=== PATIENT | male | born 1965 | race Caucasian/White ===

== ENCOUNTER 2021-12-10 16:56 | Emergency (ER) | payer SELFPAY ==
[2021-12-10 17:02] VITALS: BP 169/70; PULSE 89; RESP 16; TEMP 37.4; O2SAT 98; BMI 28.2
[2021-12-10 17:25] LABS: Appearance Urine Slightly Cloudy (Clear); Bilirubin Urine Negative (Negative); Blood Urine Trace-lysed (Negative); Color Urine Yellow (Yellow); Glucose Urine 3+ (Negative); Ketones Urine Negative (Negative); Leukocyte Esterase Urine Negative (Negative); Nitrite Urine Positive (Negative); Protein Urine Negative (Negative); Specific Gravity Urine 1.025 (1.000-1.030); Urobilinogen Urine 0.2 (0.2-1.0); pH Urine 5.5 (5.0-8.5)
--- NOTE | 2021-12-10 17:28 | ED_ITS ---
HPI - General Adult General Time Seen by Provider: 17:28 Date Seen: 12/10/21 Chief complaint: Unspecified Complaint, Adult Stated complaint: NO UPPER SORBIAN-POINTED TO HIS PENIS THE PROBLEM Time Seen by Provider: 12/10/21 16:58 Source: patient Mode of arrival: ambulatory Limitations: language barrier History of Present Illness HPI narrative: Cali is a 56-year-old female past medical history includes diabetes mellitus type 2 presents emergency department with a urinary problem. Patient does have a history of urinary tract infections in the past usually involving E.coli, patient has also had balanitis due to his uncircumcised penis and history of diabetes. Patient states over the last week he has had increased burning on finishing urination, denies any blood in the urine, denies any increased urinary frequency. Patient has not had any back pain, abdominal pain, fevers, chills. He has not had any nausea or vomiting. There has been some irritation and re dness to his glans penis and to his prepuce, he has also had increased white discharge. Patient denies any sexual activity, he denies any penile discharge, penile lesions or scrotal lesions. Patient has appointment with his primary care provider at the end of December. No other concerns at this time. Related Data Home Medications Medication Instructions Recorded Confirmed aspirin 81 mg tablet,delayed mg 12/10/21 release insulin syringe-needle U-100 0.3 12/10/21 12/10/21 mL 31 gauge x 15/64 (BD Veo Insulin Syringe Ultra-Fine) lisinopril 10 mg tablet mg 12/10/21 lovastatin 40 mg tablet mg 12/10/21 metformin 1,000 mg tablet mg 12/10/21 Previous Rx's Medication Instructions Recorded cefdinir 300 mg capsule 300 mg PO BID 7 Days #14 cap 12/10/21 hydrocortisone 2.5 % topical cream 1 applic TOPICAL BID PRN 7 Days 12/10/21 #28 g nystatin 100,000 unit/gram topical 1 applic TOPICAL BID 7 Days #30 g 12/10/21 cream Allergies Allergy/AdvReac Type Severity Reaction Status Date / Time No Known Drug Allergies Allergy Verified 12/10/21 17:10 Review of Systems Status of ROS: Reports: 10 or more systems reviewed and unremarkable except as noted in History and below PFSH PFSH Social History Smoking Status: Unknown if ever smoked Do you use any of these nicotine containing products: None How often do you have a drink containing alcohol: monthly or less AUDIT-C Alcohol total score: 1 Exam Narrative: Exam Narrative: General: No obvious distress sitting comfortably. HEENT: Pupils equal round and reactive to light, EOMI Neck: supple, FROM Lungs: CTAB Heart: Normal sinus rhythm, S1-S2 Abdomen: Soft nontender, bowel sounds present Genitourinary: Nontender to the testes bilaterally, scrotum within normal limits, no lesions noted, uncircumcised penis, with full retraction of foreskin, there is some white discharge, there is an area of inflammation redness the right side of the glans, non raised, no ulceration, there is involvement on the foreskin. No issues retracting the foreskin. Muscle skeletal: No CVA tenderness Neuro: Alert awake and oriented x3 Const: Vital Signs, click to edit/add: Vital Signs - 24 hr 12/10/21 17:02 Temperature 99.4 F Pulse Rate [Right Pulse Oximeter] 89 Respiratory Rate 16 Blood Pressure [Ri ght Upper Arm] 169/70 H Pulse Oximetry 98 Course Course Hospital Course: 5:00 PM: AIDET performed. vitals are normal. Work up will include urinalysis and urine culture, based on exam seems related to balanitis, possible [place]ita the son is diabetes history, plan to cover with nystatin cream and 2.5% hydrocortisone cream to be applied twice daily over the next 7-10 days. He sh ould follow up with his primary care provider as scheduled, return precautions given. Reevaluation(s) Reevaluation #1: Patient was updated on his urinalysis results, urine was positive for nitrates, he did have 5-10 white blood cell and many bacteria, previous culture showed E coli pansensitive, in addition to treating his balanitis will add oral cefdinir 300 mg b.i.d. over 7 days for his UTI. All questions answered, prescription sent to his local pharmacy he has follow-up arranged next month. Time: 17:55 Vital Signs Vital signs: Initial Vital Signs Temperature 99.4 F 12/10/21 17:02 Temperature Source Temporal Artery Scan 12/10/21 17:02 Pulse Rate 89 12/10/21 17:02 Respiratory Rate 16 12/10/21 17:02 Blood Pressure 169/70 H 12/10/21 17:02 Blood Pressure Mean 103 12/10/21 17:02 Blood Pressure Position Sitting 12/10/21 17:02 Pulse Oximetry 98 12/10/21 17:02 Oxygen Delivery Method 12/10/21 17:02 Vital Signs Temperature 99.4 F 12/10/21 17:02 Pulse Rate 89 12/10/21 17:02 Respiratory Rate 16 12/10/21 17:02 Blood Pressure 169/70 H 12/10/21 17:02 Pulse Oximetry 98 12/10/21 17:02 Temperature 99.4 F 12/10/21 17:02 Pulse Rate 89 12/10/21 17:02 Respiratory Rate 16 12/10/21 17:02 Blood Pressure 169/70 H 12/10/21 17:02 Pulse Oximetry 98 12/10/21 17:02 Medical Decision Making Lab Data Labs: Lab Results 12/10/21 Range/Units 17:15 Urine Color Yellow (Yellow) Urine Appearance Slightly Cloudy A (Clear) Urine pH 5.5 (5.0-8.5) Ur Specific [place] 1.025 (1.000-1.030) Urine Protein Negative (Negative) Urine Glucose (UA) 3+ A (Negative) Urine Ketones Negative (Negative) Urine Blood Trace-lysed A (Negative) Urine Nitrite Positive A (Negative) Urine Bilirubin Negative (Negative) Urine Urobilinogen 0.2 (0.2-1.0) Ur Leukocyte Esterase Negative (Negative) Urine RBC 0-2 (0-2) Urine WBC 5-10 A (0-5) Ur Squamous Epith Cells Few (None-Few) Urine Bacteria Many A (None) Discharge Plan Discharge Clinical Impression: Balanitis, History of frequent urinary tract infections Patient Disposition: Home, Self-Care Condition: Improved Instructions: Balanitis (ED) Prescriptions: New hydrocortisone 2.5 % cream 1 applic topical BID PRN7 Days Qty: 28 0RF cefdinir 300 mg capsule 300 mg PO BID 7 Days Qty: 14 0RF nystatin 100,000 unit/gram cream 1 applic topical BID 7 Days Qty: 30 0RF No Action lovastatin 40 mg tablet 0RF Label Comments: TAKE 1 TABLET BY MOUTH EVERY DAY WITH THE EVENING MEAL aspirin 81 mg tablet,delayed release (DR/EC) 0RF Label Comments: TAKE ONE TABLET BY MOUTH EVERY DAY metformin 1,000 mg tablet 0RF Label Comments: TAKE ONE TABLET BY MOUTH TWICE DAILY WITH MORNING AND EVENING MEALS lisinopril 10 mg tablet 0RF Label Comments: TAKE ONE TABLET BY MOUTH EVERY DAY (DME) insulin syringe-needle U-100 [BD Veo Insulin Syringe UF] 0.3 mL 31 gauge x 15/64 syringe MISCELLANEOUS 0RF Label Comments: USE DIRECTED WITH INSULIN Stand Alone Forms: My[facility] Info Instructions
[2021-12-10 17:46] LABS: Bacteria Urine Many; RBC Urine 0-2 (0-2); Squamous Epithelial Cell Urine Few (None-Few)
== END 2021-12-10 18:27 | disposition home or self-care (01) ==
PROVIDERS: Emergency Provider Student in an Organized Health Care Education/Training Program
DX: N48.1 Balanitis (principal)
CPT/HCPCS: 81001; 87086; 87186; 87502; 87635; 99283; 99284

== ENCOUNTER 2023-09-11 17:47 | Emergency (ER) | payer OTHER, SELFPAY ==
[2023-09-11 18:03] VITALS: BP 178/68; PULSE 75; RESP 18; TEMP 37.1; O2SAT 100; BMI 28.3
--- NOTE | 2023-09-11 18:58 | ED_ITS ---
HPI - General Adult General Chief complaint: Urogenital Problems, Male Stated complaint: pain/burning when urinating and red penis Time Seen by Provider: 09/11/23 17:58 Source: patient Mode of arrival: ambulatory Limitations: no limitations History of Present Illness HPI narrative: 57-year-old male coming in today complaining of burning and pain at the tip of the penis. States has been present for about 3 weeks. States that he has seen his doctor and he got 2 creams: It appears that he got hydrocortisone and clotrimazole. He states he has had 1 sexual partner for the last 20 years. He denies purulent discharge from the tip of the penis. He denies any systemic symptoms. Patient does have diabetes. Related Data Home Medications Medication Instructions Recorded Confirmed aspirin 81 mg tablet,delayed mg 12/10/21 release insulin syringe-needle U-100 0.3 12/10/21 09/11/23 mL 31 gauge x 15/64 (BD Veo Insulin Syringe Ultra-Fine) lisinopril 10 mg tablet 10 mg 12/10/21 lovastatin 40 mg tablet 40 mg 12/10/21 metformin 1,000 mg tablet 500 mg 12/10/21 Previous Rx's Medication Instructions Recorded cefdinir 300 mg capsule 300 mg PO BID 7 days #14 caps 12/10/21 hydrocortisone 2.5 % topical cream 1 applic topical BID PRN 7 days 12/10/21 #28 grams nystatin 100,000 unit/gram topical 1 applic topical BID 7 days #30 12/10/21 cream grams miconazole nitrate 2 % topical 1 applic topical BID 14 days #15 09/11/23 cream grams Allergies Allergy/AdvReac Type Severity Reaction Status Date / Time No Known Drug Allergies Allergy Verified 12/10/21 17:10 Review of Systems Status of ROS: Reports: 10 or more systems reviewed and unremarkable except as noted in History and below [facility] Social History Smoking Status: Unknown if ever smoked Do you use any of these nicotine containing products: None How often do you have a drink containing alcohol: monthly or less AUDIT-C Alcohol total score: 1 Exam Narrative: Exam Narrative: Well-nourished well-developed patient in no acute distress. Alert and oriented. Answers questions appropriately. Mood and affect are appropriate. Thoughts are goal oriented and rational. No tangential or magical thinking noted. Patient speaks in full sentences without needing to catch his breath. He does have poor dentition and strong malodorous breath. HEENT: Normocephalic atraumatic. Pupils are equally round reactive to light. Extraocular muscles are intact. Conjunctivae are moist without any icterus noted. Moist mucous membranes. : Penis has normal appearance of the shaft. He is on circum sized. The foreskin on the outside, appears healthy. The skin is easily retracted without any evidence of phimosis. The glans of the penis has erythematous glazed patches with some white discharge present. He also has erythematous patches on the inner surface of the foreskin. There is no spreading rash over the shaft of the penis or scrotum. No rash of the thighs. No significant lymphadenopathy noted. The entire area smells very strongly of urine. Const: Vital Signs, click to edit/add: Vital Signs - 24 hr 09/11/23 18:03 Temperature 98.8 F Pulse Rate [Right Pulse Oximeter] 75 Respiratory Rate 18 Blood Pressure [Ri ght Upper Arm] 178/68 H Pulse Oximetry 100 Oxygen Delivery Me thod Room Air Course Vital Signs Vital signs: Initial Vital Signs Temperature 98.8 F 09/11/23 18:03 Temperature Source Temporal Artery Scan 09/11/23 18:03 Pulse Rate 75 09/11/23 18:03 Respiratory Rate 18 09/11/23 18:03 Blood Pressure 178/68 H 09/11/23 18:03 Blood Pressure Mean 104 09/11/23 18:03 Blood Pressure Position Sitting 09/11/23 18:03 Pulse Oximetry 100 09/11/23 18:03 Oxygen Delivery Method Room Air 09/11/23 18:03 Vital Signs Temperature 98.8 F 09/11/23 18:03 Pulse Rate 75 09/11/23 18:03 Respiratory Rate 18 09/11/23 18:03 Blood Pressure 178/68 H 09/11/23 18:03 Pulse Oximetry 100 09/11/23 18:03 Oxygen Delivery Method Room Air 09/11/23 18:03 Temperature 98.8 F 09/11/23 18:03 Pulse Rate 75 09/11/23 18:03 Respiratory Rate 18 09/11/23 18:03 Blood Pressure 178/68 H 09/11/23 18:03 Pulse Oximetry 100 09/11/23 18:03 Oxygen Delivery Method Room Air 09/11/23 18:03 Medical Decision Making MDM Narrative Medical decision making narrative: 57-year-old male with balanitis. I think that hygiene is playing a big part in his symptoms. Therefore we discussed hygiene. Were going to change his clotrimazole cream to make own as all cream 2% to see if this makes a difference. Continue 1% hydrocortisone. Discharge Plan Discharge Clinical Impression: Balanitis Patient Disposition: Home, Self-Care Condition: Stable Additional Instructions: Recommend twice daily saline solution bathing for 14 days. Pull back the foreskin, use saline to with the area. Use a gentle soap to very gently cleanse the entire penis. Then rinse with saline. Do this 2 times per day. Pat dry-do not rub dry. Make sure that you are changing your underwear twice daily as well. Use the hydrocortisone cream that you have been prescribed twice a day. Apply this cream after cleansing the area. Then apply a new antifungal cream which has been sent to the pharmacy for you. Apply this twice a day as well. If after 2 weeks of twice daily cleaning and drying with twice daily application of both creams the condition does not improve, need to follow-up with your primary care provider for next steps. Lastly, make sure that your blood sugar level is well controlled. Prescriptions: New miconazole nitrate 2 % cream 1 applic topical BID 14 Days Qty: 15 0RF No Action lovastatin 40 mg tablet 40 mg Patient Comments: TAKE 1 TABLET BY MOUTH EVERY DAY WITH THE EVENING MEAL aspirin 81 mg tablet,delayed release (DR/EC) Patient Comments: TAKE ONE TABLET BY MOUTH EVERY DAY metformin 1,000 mg tablet 500 mg Patient Comments: TAKE ONE TABLET BY MOUTH TWICE DAILY WITH MORNING AND EVENING MEALS lisinopril 10 mg tablet 10 mg Patient Comments: TAKE ONE TABLET BY MOUTH EVERY DAY (DME) insulin syringe-needle U-100 [BD Veo Insulin Syringe UF] 0.3 mL 31 gauge x 15/64 syringe MISCELLANEOUS Patient Comments: USE DIRECTED WITH INSULIN hydrocortisone 2.5 % cream 1 applic topical BID PRN7 Days Qty: 28 0RF cefdinir 300 mg capsule 300 mg PO BID 7 Days Qty: 14 0RF nystatin 100,000 unit/gram cream 1 applic topical BID 7 Days Qty: 30 0RF Stand Alone Forms: MyHealth Info Instructions
--- OUTSIDE RECORDS SUMMARY | 2023-09-11 19:33 | XMS_ITS | Clinical Summary ---
Author Name Unknown Organization [facility] Address [place], [place] [address] Care Team Providers Care Chief Nursing Officer Name Role Phone Pcp, No Primary Care Provider Unavailabl e Allergies No known active allergies Medications Medication Sig Dispensed Refills Start Date End Date Status metFORMIN (GLUCOPHAGE) 1,000 mg tablet Take 1 tablet by mouth 2 times daily with meals. 0 01/08/2015 Active lovastatin (MEVACOR) 20 mg tablet Take 1 tablet by mouth at bedtime. 0 12/04/2015 Active Active Problems No known active problems Social History Tobacco Use Types Packs/Day Years Used Date Smoking Tobacco: Never Smokeless Tobacco: Never Tobacco Cessation:Counseling Given: Yes Alcohol Use Standard Drinks/Week Comments Not Asked 0 (1 standard drink = 0.6 oz pur e alcohol) Sex and Gender Information Value Date Recorded Sex Assigned at Not on file Gender Identity Not on file Sexual Orientation Not on file Obstetrics History Last Filed Vital Signs Vital Sign Reading Time Taken Comments Blood Pressure 149/74 12/04/2015 11:01 AM CDT Pulse 80 12/04/2015 11:01 AM CDT Temperature 36.9 ??C (98.4 ??F) 12/04/2015 11:01 AM C DT Respiratory Rate - - Oxygen Saturation 99% 12/04/2015 11:01 AM CDT Inhaled Oxygen Concentration - - Weight 71.7 kg (158 lb) 12/04/2015 11:01 AM CDT Height 169.4 cm (5' 6.7) 12/04/2015 11:01 AM CD T Body Mass Index 24.97 12/04/2015 11:01 AM CDT Plan of Treatment Health Maintenance Due Date Last Done Comments Tdap 09/13/1974 HIV for age 15-65 09/13/1978 Hepatitis C screening for age 18-79 09/13/1981 Tetanus booster 1983 Colonoscopy through age 75 09/13/2008 Zoster (shingles) series for age 50+ (1 of 2) 09/13/2013 BMI (ht and wt on same day) for age 18+ 12/03/2016 12/04/2015 Depression screening for age 12+ 12/03/2016 12/04/2015 Lipids for age 45-75 11/24/2020 11/25/2015, 08/20/2014, 10/17/2013, Additional history exists COVID-19 vaccine series (2022-24 season) 2023 Influenza for age 50-64 01/16/2024 Pneumococcal series for age 6-64 Aged Out No longer eligible based on patient's age to complete this topic Procedures Procedure Name Priority Date/Time Associated Diagnosis Comments LIPID PANEL Routine 11/25/2015 8:40 AM CDT Diabetes mellitus (HC) from Last 3 Months or Most Recently Relevant to Health Maintenance Results * LIPID PANEL (11/25/2015 8:40 AM CDT) CHOLESTEROL,TOTAL 162 100 - 199 mg/dL 11/25/2015 9:25 AM CDT [facility] TRIGLYCERIDES 147 <150 mg/dL 11/25/2015 9:25 AM CDT [facility] HDL CHOLESTEROL 43 >40 mg/dL 11/25/2015 9:25 AM CDT [facility] NON-HDL CHOLESTEROL 119 <145 mg/dl 11/25/2015 9:25 AM CDT [facility] CHOL/HDL RATIO 3.77 <4.50 11/25/2015 9:25 AM CDT [facility] LDL CHOLESTEROL 90 <=130 mg/dL 11/25/2015 9:25 AM CDT [facility] PATIENT STATUS FASTING 11/25/2015 9:25 AM CDT [facility] Blood BLOOD SPECIMEN / Unknown Venipuncture / Unknown 11/25/2015 8:40 AM CDT 11/25/2015 8:40 AM CDT Jazmin Ochoa MD CHEMISTRY [facility] [address] [place] [address], from Last 3 Months or Most Recently Relevant to Health Maintenance Care Teams Chief Nursing Officer Relationship Specialty Start Date End Date Pcp, No . PCP - General 10/17/13
== END 2023-09-11 20:04 | disposition home or self-care (01) ==
LOC: ED 19:31
PROVIDERS: Emergency Provider Family Medicine
DX: N48.1 Balanitis (principal)
CPT/HCPCS: 99283